=== PATIENT | male | born 1965 | race Two or more races ===

== ENCOUNTER 2023-07-26 23:40 | Inpatient (IN) | payer BC, OTHER ==
[~2023-07-26] VITALS: Ht 160 cm; Wt 105.0 kg
[2023-07-27] VITALS: PULSE 88; RESP 20; O2SAT 98
[2023-07-27] MEDS ORDERED: SODIUM CHLORIDE 0.9% 1,000 ML IV ONE (00:30)
[2023-07-27 00:32] LABS: Basophils # (auto) 0 10 ^3/uL (0-0.2); Basophils % (auto) 0.1 % (0.0-2.0); Eosinophils # (auto) 0 10 ^3/uL (0-0.8); Eosinophils % (auto) 0.1 % (0.0-7.0); Mean Corpuscular Hemoglobin 32.1 pg (28.0-32.0); Monocytes # (auto) 1.7 10 ^3/uL (0-1.3); Monocytes % (auto) 14.4 % (0.0-12.0); White Blood Cell 11.7 10^3/uL (4.4-10.8)
[2023-07-27 00:34] LABS: Hematocrit 38.2 % (41.0-53.0); Hemoglobin 14.1 g/dL (13.5-17.5); Lymphocytes # (auto) 0.9 10 ^3/uL (0.4-5.4); Lymphocytes % (auto) 7.7 % (10.0-50.0); Mean Corpuscular Volume 86.8 fL (80.0-100.0); Neutrophils # (auto) 9.1 10 ^3/uL (1.6-8.6); Neutrophils % (auto) 77.7 % (37.0-80.0); Nucleated Red Blood Cells % 0.1 %
[2023-07-27 00:42] LABS: INR 1.13 (0.9-1.15); Partial Thromboplastin Time 27.1 SEC (24.5-34.5); Prothrombin Time 11.8 sec (9.3-11.8)
[2023-07-27 00:44] LABS: Alanine Aminotransferase 261 U/L (7-40); Albumin 3.8 g/dL (3.2-4.8); Alkaline Phosphatase 84 U/L (46-116); Anion Gap 8 (5-15); Aspartate Aminotransferase 690 U/L (13-40); BUN/Creatinine Ratio 28.8 (10.0-20.0); Bilirubin, Total 2.5 mg/dL (0.2-1.0); Blood Urea Nitrogen 23 mg/dL (9-23); Calcium 7.8 mg/dL (8.7-10.4); Carbon Dioxide 27 mmol/L (20-30); Chloride 86 mmol/L (98-107); Glucose 122 mg/dL (74-106); Lipase 118 U/L (12-53); Magnesium 1.6 mg/dL (1.6-2.6); Sodium 121 mmol/L (136-145); Total Protein 6.5 g/dL (5.7-8.2)
[2023-07-27 00:51] LABS: Potassium 2.2 mmol/L (3.5-5.1)
[2023-07-27] MEDS ORDERED: POTASSIUM CHL 20 Meq TABLET PO ONE ×2 (01:00→06:45)
[2023-07-27 01:04] LABS: Blood Alcohol < 3.0 mg/dL (<10); Lipase 120 U/L (12-53)
[2023-07-27] MEDS ORDERED: SODIUM CHLORIDE 0.9% 1,000 ML IV SCH (05:30)
[2023-07-27] MEDS ORDERED: ONDANSETRON HCL 4 MG/2 ML VIAL IV PRN (05:30)
[2023-07-27] MEDS ORDERED: DOCUSATE SOD 100 MG CAP PO PRN (05:30)
[2023-07-27] MEDS ORDERED: IBUPROFEN 600 MG TAB PO PRN (05:30)
[2023-07-27 05:50] LABS: Basophils # (auto) 0 10 ^3/uL (0-0.2); Eosinophils # (auto) 0 10 ^3/uL (0-0.8); Eosinophils % (auto) 0.1 % (0.0-7.0); Hemoglobin 13.8 g/dL (13.5-17.5)
[2023-07-27 05:52] LABS: Basophils % (auto) 0.1 % (0.0-2.0); Hematocrit 37.9 % (41.0-53.0); Lymphocytes % (auto) 8.2 % (10.0-50.0); Mean Corpuscular Volume 87.5 fL (80.0-100.0); Monocytes # (auto) 1.7 10 ^3/uL (0-1.3); Monocytes % (auto) 14.2 % (0.0-12.0); Neutrophils # (auto) 9.3 10 ^3/uL (1.6-8.6); Neutrophils % (auto) 77.4 % (37.0-80.0); Red Blood Cells 4.33 10^6/uL (4.5-5.90); Red Cell Distribution Width 13.1 % (11.8-14.3)
[2023-07-27 05:55] LABS: Mean Corpuscular Hgb Conc. 36.6 g/dL (32.0-36.0)
[2023-07-27 05:59] LABS: Alanine Aminotransferase 251 U/L (7-40); Albumin 3.8 g/dL (3.2-4.8); Alkaline Phosphatase 84 U/L (46-116); Anion Gap 8 (5-15); Aspartate Aminotransferase 611 U/L (13-40); BUN/Creatinine Ratio 28.8 (10.0-20.0); Blood Urea Nitrogen 21 mg/dL (9-23); Calcium 8.1 mg/dL (8.7-10.4); Carbon Dioxide 27 mmol/L (20-30); Chloride 85 mmol/L (98-107); Glucose 126 mg/dL (74-106); Sodium 120 mmol/L (136-145)
[2023-07-27 06:00] LABS: Bilirubin, Total 2.5 mg/dL (0.2-1.0); Total Protein 6.4 g/dL (5.7-8.2)
[2023-07-27 06:11] LABS: Potassium 2.7 mmol/L (3.5-5.1)
[2023-07-27] MEDS ORDERED: NITROGLYCERIN 0.4 MG SL TAB SL PRN (06:45)
[2023-07-27] MEDS ORDERED: MORPHINE SULFATE INJ 2 MG/ml SYRG IV PRN (06:45)
[2023-07-27] MEDS: POTASSIUM CHL 20MEQ/100ML 100 ML IV SCH ×2 (07:20→09:02)
[2023-07-27 07:52] VITALS: PULSE 91; RESP 25; O2SAT 95
[2023-07-27 08:38] LABS: Urine Bacteria NONE SEEN /hpf (None Seen); Urine Blood 2+ /uL (Negative); Urine Clarity Clear (Clear); Urine Color Yellow (Yellow); Urine Hyaline Cast FEW /lpf (0 - 2); Urine Protein, UAD 1+ (Negative); Urine Specific Gravity 1.019 (1.001-1.035); Urine Urobilinogen Normal (Negative); Urine WBC 3 /hpf (0 - 3)
[2023-07-27 08:56] LABS: Amphetamine Screen, Urine Neg (NEGATIVE); Barbiturate Scree,Urine Neg (NEGATIVE); Benzodiazephine Screen, Urine Neg (NEGATIVE); Cannabinoid Screen, Urine Neg (NEGATIVE); Cocaine Screen, Urine Neg (NEGATIVE); Opiate Scree,Urine Neg (NEGATIVE); Phencyclidine Screen, Urine Neg (NEGATIVE)
[2023-07-27] MEDS: cefTRIAXone 1GM/50ML D5W 50 ML IV SCH (09:36)
[2023-07-27 13:57] LABS: Protein, Urine 62.3 mg/dL (0.0-11.9)
[2023-07-27 14:00] LABS: Creatinine, Urine 132.46 mg/dL (30.0-125.0)
[2023-07-27 16:54] LABS: Chloride 92 mmol/L (98-107); Potassium 3.4 mmol/L (3.5-5.1)
[2023-07-27 16:55] LABS: Anion Gap 6 (5-15); Calcium 8.4 mg/dL (8.7-10.4); Carbon Dioxide 27 mmol/L (20-30)
[2023-07-27 16:56] LABS: Sodium 125 mmol/L (136-145)
[2023-07-27 17:00] LABS: BUN/Creatinine Ratio 19.1 (10.0-20.0); Blood Urea Nitrogen 13 mg/dL (9-23); Glucose 141 mg/dL (74-106)
[2023-07-27 17:20] LABS: Creatine Kinase IFCC 11800 U/L (46-171)
[2023-07-27] MEDS: SODIUM BICARB 50ML SYR 50 ML in SODIUM CHLORIDE 0.9% 1,000 ML IV SCH (18:05)
[2023-07-27 19:23] VITALS: TEMP 37.1
[2023-07-27 20:00] VITALS: PULSE 74; RESP 18; O2SAT 98
[2023-07-27] MEDS: FAMOTIDINE (10MG/ML) 2ML VL IV SCH (21:47)
[2023-07-27 22:00] VITALS: BP 106/62; PULSE 74; RESP 18; TEMP 98.2; O2SAT 98
[2023-07-28] VITALS (8 sets, daily range): BP systolic 102–130; BP diastolic 47–68; PULSE 66–82; RESP 15–20; TEMP 97.8–98.4; O2SAT 94–98
[2023-07-28 05:57] LABS: Basophils # (auto) 0 10 ^3/uL (0-0.2); Basophils % (auto) 0.1 % (0.0-2.0); Eosinophils # (auto) 0 10 ^3/uL (0-0.8); Eosinophils % (auto) 0.4 % (0.0-7.0); Hematocrit 36.9 % (41.0-53.0); Hemoglobin 13.3 g/dL (13.5-17.5); Lymphocytes # (auto) 1.4 10 ^3/uL (0.4-5.4); Mean Corpuscular Hemoglobin 32.3 pg (28.0-32.0); Mean Corpuscular Volume 89.8 fL (80.0-100.0); Monocytes # (auto) 1.6 10 ^3/uL (0-1.3); Monocytes % (auto) 17.9 % (0.0-12.0); Neutrophils # (auto) 5.7 10 ^3/uL (1.6-8.6); Neutrophils % (auto) 65.6 % (37.0-80.0); Nucleated Red Blood Cells % 0.1 %; Red Blood Cells 4.11 10^6/uL (4.5-5.90); Red Cell Distribution Width 13.4 % (11.8-14.3); White Blood Cell 8.7 10^3/uL (4.4-10.8)
[2023-07-28 06:10] LABS: Alanine Aminotransferase 211 U/L (7-40); Albumin 3.7 g/dL (3.2-4.8); Alkaline Phosphatase 82 U/L (46-116); Anion Gap 5 (5-15); Aspartate Aminotransferase 386 U/L (13-40); Bilirubin, Total 1.5 mg/dL (0.2-1.0); Blood Urea Nitrogen 13 mg/dL (9-23); Calcium 8.4 mg/dL (8.7-10.4); Carbon Dioxide 30 mmol/L (20-30); Chloride 96 mmol/L (98-107); Glucose 121 mg/dL (74-106); Lipase 321 U/L (12-53); Phosphorus 2.4 mg/dL (2.4-5.1); Total Protein 6.3 g/dL (5.7-8.2)
[2023-07-28 06:22] LABS: Sodium 131 mmol/L (136-145)
[2023-07-28 06:23] LABS: Creatine Kinase IFCC 8039 U/L (46-171)
[2023-07-28 06:34] LABS: Potassium 2.9 mmol/L (3.5-5.1)
[2023-07-28] MEDS ORDERED: POTASSIUM CHL 20 Meq TABLET PO ONE (06:45)
[2023-07-28] MEDS: POTASSIUM CHL 20MEQ/100ML 100 ML IV SCH ×2 (08:45→09:23)
[2023-07-28] MEDS: FAMOTIDINE (10MG/ML) 2ML VL IV SCH ×2 (09:23→22:16)
[2023-07-28] MEDS: cefTRIAXone 1GM/50ML D5W 50 ML IV SCH (09:23)
[2023-07-28] MEDS: SODIUM BICARB 50ML SYR 50 ML in SODIUM CHLORIDE 0.9% 1,000 ML IV SCH (09:30)
[2023-07-28 15:56] LABS: Triglycerides 139 mg/dL (< 150)
[2023-07-28 15:57] LABS: LDL Cholesterol 70 mg/dL (< 100)
[2023-07-28 15:58] LABS: Cholesterol 128 mg/dL (< 200); HDL Cholesterol 43 mg/dL (40-59)
[2023-07-29] VITALS (8 sets, daily range): BP systolic 115–134; BP diastolic 60–79; PULSE 69–82; RESP 14–20; TEMP 98.1–98.7; O2SAT 97–98
[2023-07-29] MEDS: SODIUM BICARB 50ML SYR 50 ML in SODIUM CHLORIDE 0.9% 1,000 ML IV SCH ×2 (01:41→21:14)
[2023-07-29 06:34] LABS: Hematocrit 36.3 % (41.0-53.0); Hemoglobin 12.7 g/dL (13.5-17.5); Mean Corpuscular Hemoglobin 32.2 pg (28.0-32.0); Red Blood Cells 3.95 10^6/uL (4.5-5.90); Red Cell Distribution Width 14.4 % (11.8-14.3); White Blood Cell 7.6 10^3/uL (4.4-10.8)
[2023-07-29 06:38] LABS: Basophils % (manual) 0 (0.0-2.0); Blast Cells 0; Metamyelocytes % 0; Promyelocytes % 0; Reactive Lymphocytes 0
[2023-07-29 06:47] LABS: Calcium 8.5 mg/dL (8.7-10.4); Chloride 100 mmol/L (98-107); Potassium 3.7 mmol/L (3.5-5.1); Sodium 137 mmol/L (136-145)
[2023-07-29 06:53] LABS: Blood Urea Nitrogen 14 mg/dL (9-23); Glucose 110 mg/dL (74-106)
[2023-07-29 06:56] LABS: Phosphorus 2.5 mg/dL (2.4-5.1)
[2023-07-29 07:05] LABS: Creatine Kinase IFCC 3593 U/L (46-171)
[2023-07-29 07:13] LABS: Anion Gap 4 (5-15); Carbon Dioxide 33 mmol/L (20-30)
[2023-07-29 07:40] LABS: Band Neutrophils % (manual) 3; Eosinophils % (manual) 1 (0-7); Lymphocytes % (manual) 32 (10.0-50.0); Monocytes % (manual) 2 (0-12); Myelocytes % 1; Platelet Estimate Adequate
[2023-07-29 09:13] LABS: Hepatitis B Core Total AB Negative (Negative)
[2023-07-29] MEDS: FAMOTIDINE (10MG/ML) 2ML VL IV SCH ×2 (09:18→21:14)
[2023-07-29] MEDS: cefTRIAXone 1GM/50ML D5W 50 ML IV SCH (09:18)
[2023-07-29 12:40] LABS: Hepatitis A Total Antibody Negative (Negative); Hepatitis B Surface Antibody Negative (Negative); Hepatitis B Surface Antigen Negative (Negative); Hepatitis C Antibody Negative (Negative)
[2023-07-29 13:10] LABS: Sodium Urine < 10 mmol/L (40-220)
[2023-07-29] MEDS ORDERED: SERT-206 PO (14:26)
[2023-07-30] VITALS (7 sets, daily range): BP systolic 97–157; BP diastolic 70–92; PULSE 40–79; RESP 18–20; TEMP 97.6–98.6; O2SAT 96–100
[2023-07-30 07:25] LABS: Alanine Aminotransferase 165 U/L (7-40); Albumin 3.8 g/dL (3.2-4.8); Alkaline Phosphatase 79 U/L (46-116); Anion Gap 3 (5-15); Aspartate Aminotransferase 155 U/L (13-40); BUN/Creatinine Ratio 18.2 (10.0-20.0); Bilirubin, Total 0.7 mg/dL (0.2-1.0); Blood Urea Nitrogen 12 mg/dL (9-23); Calcium 8.8 mg/dL (8.7-10.4); Carbon Dioxide 34 mmol/L (20-30); Chloride 101 mmol/L (98-107); Glucose 101 mg/dL (74-106); Lipase 474 U/L (12-53); Potassium 4.1 mmol/L (3.5-5.1); Sodium 138 mmol/L (136-145); Total Protein 6.3 g/dL (5.7-8.2)
[2023-07-30 07:36] LABS: Creatine Kinase IFCC 1838 U/L (46-171)
[2023-07-30] MEDS: cefTRIAXone 1GM/50ML D5W 50 ML IV SCH (08:29)
[2023-07-30] MEDS: FAMOTIDINE (10MG/ML) 2ML VL IV SCH ×2 (08:29→21:44)
[2023-07-30] MEDS: SODIUM BICARB 50ML SYR 50 ML in SODIUM CHLORIDE 0.9% 1,000 ML IV SCH (14:15)
[2023-07-31 05:00] VITALS: BP 132/69; PULSE 70; RESP 18; TEMP 98.3; O2SAT 97
[2023-07-31 07:48] LABS: Hematocrit 39.2 % (41.0-53.0); Hemoglobin 13.3 g/dL (13.5-17.5); Mean Corpuscular Hemoglobin 31.9 pg (28.0-32.0); Mean Corpuscular Hgb Conc. 33.9 g/dL (32.0-36.0); Mean Corpuscular Volume 94.3 fL (80.0-100.0); Red Blood Cells 4.16 10^6/uL (4.5-5.90); Red Cell Distribution Width 14.6 % (11.8-14.3)
[2023-07-31 08:00] VITALS: BP 143/82; PULSE 76; PULSE 78; RESP 18; RESP 19; TEMP 97.8; O2SAT 95
[2023-07-31 08:04] LABS: Alanine Aminotransferase 143 U/L (7-40); Albumin 3.7 g/dL (3.2-4.8); Alkaline Phosphatase 70 U/L (46-116); Aspartate Aminotransferase 115 U/L (13-40); BUN/Creatinine Ratio 11.7 (10.0-20.0); Bilirubin, Total 0.9 mg/dL (0.2-1.0); Blood Urea Nitrogen 7 mg/dL (9-23); Calcium 8.7 mg/dL (8.7-10.4); Carbon Dioxide 29 mmol/L (20-30); Creatine Kinase IFCC 1160 U/L (46-171); Glucose 102 mg/dL (74-106); Lipase 255 U/L (12-53); Total Protein 6.3 g/dL (5.7-8.2)
[2023-07-31] MEDS: SODIUM BICARB 50ML SYR 50 ML in SODIUM CHLORIDE 0.9% 1,000 ML IV SCH ×2 (08:06→21:17)
[2023-07-31 08:12] LABS: Band Neutrophils % (manual) 0; Basophils % (manual) 0 (0.0-2.0); Blast Cells 0; Metamyelocytes % 0; Promyelocytes % 0; Reactive Lymphocytes 0
[2023-07-31 08:37] LABS: Anion Gap 3 (5-15); Chloride 104 mmol/L (98-107); Potassium 3.9 mmol/L (3.5-5.1); Sodium 136 mmol/L (136-145)
[2023-07-31 08:57] LABS: Eosinophils % (manual) 1 (0-7); Lymphocytes % (manual) 25 (10.0-50.0); Monocytes % (manual) 20 (0-12); Myelocytes % 1; Platelet Estimate Adequate
[2023-07-31] MEDS ORDERED: IOHEXOL 350 MG/ML 100ML IJ ONE (09:17)
[2023-07-31] MEDS: FAMOTIDINE (10MG/ML) 2ML VL IV SCH ×2 (10:34→21:16)
[2023-07-31] MEDS: cefTRIAXone 1GM/50ML D5W 50 ML IV SCH (10:34)
[2023-07-31] MEDS: ENOXAPARIN SOD 100 MG/1 ML SYRINGE SC SCH ×2 (12:08→21:17)
[2023-07-31] MEDS ORDERED: MAGNESIUM SULFATE 1GM/100ML 100 ML IV ONE (12:15)
[2023-07-31] MEDS ORDERED: LISINOPRIL 20 MG TAB PO ONE (12:15)
[2023-07-31 13:00] VITALS: BP 145/60; PULSE 83; RESP 20; TEMP 98.3; O2SAT 99
[2023-07-31] MEDS: HYDROcodone-ACET 5/325MG TAB PO PRN (14:47)
[2023-07-31 17:00] VITALS: BP 103/59; PULSE 72; RESP 18; TEMP 97.5; O2SAT 94
[2023-07-31 20:00] VITALS: PULSE 71; PULSE 92; RESP 18; O2SAT 96
[2023-07-31 22:00] VITALS: BP 132/93; PULSE 83; RESP 20; TEMP 98.9; O2SAT 96
[2023-08-01 05:00] VITALS: BP 105/55; PULSE 81; RESP 18; TEMP 98.2; O2SAT 98
[2023-08-01 06:10] LABS: Hematocrit 37.9 % (41.0-53.0); Hemoglobin 13.3 g/dL (13.5-17.5); Mean Corpuscular Hemoglobin 32.7 pg (28.0-32.0); Mean Corpuscular Hgb Conc. 35.1 g/dL (32.0-36.0); Mean Corpuscular Volume 93.3 fL (80.0-100.0); Red Blood Cells 4.07 10^6/uL (4.5-5.90); Red Cell Distribution Width 14.3 % (11.8-14.3); White Blood Cell 6.9 10^3/uL (4.4-10.8)
[2023-08-01 06:14] LABS: Basophils % (manual) 0 (0.0-2.0); Blast Cells 0; Metamyelocytes % 0; Myelocytes % 0; Promyelocytes % 0; Reactive Lymphocytes 0
[2023-08-01 06:24] LABS: Alanine Aminotransferase 122 U/L (7-40); Albumin 3.7 g/dL (3.2-4.8); Alkaline Phosphatase 66 U/L (46-116); Anion Gap 6 (5-15); Aspartate Aminotransferase 68 U/L (13-40); BUN/Creatinine Ratio 18.5 (10.0-20.0); Bilirubin, Total 1.3 mg/dL (0.2-1.0); Blood Urea Nitrogen 10 mg/dL (9-23); Calcium 8.9 mg/dL (8.5-10.1); Carbon Dioxide 29 mmol/L (20-30); Chloride 103 mmol/L (98-107); Glucose 103 mg/dL (74-106); Potassium 4.1 mmol/L (3.5-5.1); Sodium 138 mmol/L (136-145)
[2023-08-01 06:37] LABS: Magnesium 2.1 mg/dL (1.6-2.6)
[2023-08-01 07:27] LABS: Band Neutrophils % (manual) 4; Eosinophils % (manual) 1 (0-7); Lymphocytes % (manual) 23 (10.0-50.0); Monocytes % (manual) 17 (0-12); Platelet Estimate Adequate
[2023-08-01] MEDS: HYDROcodone-ACET 5/325MG TAB PO PRN ×2 (07:37→21:42)
[2023-08-01 08:00] VITALS: BP 117/81; PULSE 72; RESP 21; TEMP 97.9; O2SAT 98
[2023-08-01] MEDS: ENOXAPARIN SOD 100 MG/1 ML SYRINGE SC SCH ×2 (10:25→21:42)
[2023-08-01] MEDS: FAMOTIDINE (10MG/ML) 2ML VL IV SCH ×2 (10:25→21:43)
[2023-08-01] MEDS: LISINOPRIL 20 MG TAB PO SCH (10:25)
[2023-08-01 12:00] VITALS: BP 137/90; PULSE 79; RESP 20; TEMP 98.2; O2SAT 95
[2023-08-01 16:00] VITALS: BP 132/100; PULSE 83; RESP 20; TEMP 99.2; O2SAT 99
[2023-08-01] MEDS: SODIUM BICARB 50ML SYR 50 ML in SODIUM CHLORIDE 0.9% 1,000 ML IV SCH (18:30)
[2023-08-01 20:00] VITALS: PULSE 111
[2023-08-01 22:00] VITALS: BP 102/58; PULSE 82; RESP 17; TEMP 99.3; O2SAT 97
[2023-08-02] VITALS (7 sets, daily range): BP systolic 108–132; BP diastolic 69–88; PULSE 61–100; RESP 14–20; TEMP 97.8–98.3; O2SAT 98–100
[2023-08-02 06:49] LABS: Hematocrit 37.2 % (41.0-53.0); Hemoglobin 12.7 g/dL (13.5-17.5); Mean Corpuscular Hemoglobin 32.6 pg (28.0-32.0); Mean Corpuscular Hgb Conc. 34.2 g/dL (32.0-36.0); Mean Corpuscular Volume 95.3 fL (80.0-100.0); Red Cell Distribution Width 14.8 % (11.8-14.3); White Blood Cell 6.4 10^3/uL (4.4-10.8)
[2023-08-02 07:03] LABS: Basophils % (manual) 0 (0.0-2.0); Blast Cells 0; Metamyelocytes % 0; Myelocytes % 0; Promyelocytes % 0; Reactive Lymphocytes 0
[2023-08-02 07:07] LABS: Alanine Aminotransferase 96 U/L (7-40); Albumin 3.8 g/dL (3.2-4.8); Alkaline Phosphatase 71 U/L (46-116); Anion Gap 6 (5-15); Aspartate Aminotransferase 49 U/L (13-40); BUN/Creatinine Ratio 11.1 (10.0-20.0); Blood Urea Nitrogen 7 mg/dL (9-23); Calcium 8.9 mg/dL (8.7-10.4); Carbon Dioxide 29 mmol/L (20-30); Chloride 104 mmol/L (98-107); Creatine Kinase IFCC 509 U/L (46-171); Glucose 88 mg/dL (74-106); Lipase 132 U/L (12-53); Potassium 4.4 mmol/L (3.5-5.1); Sodium 139 mmol/L (136-145)
[2023-08-02 07:08] LABS: Bilirubin, Total 1.2 mg/dL (0.2-1.0); Total Protein 6.3 g/dL (5.7-8.2)
[2023-08-02 09:33] LABS: Band Neutrophils % (manual) 1; Eosinophils % (manual) 1 (0-7); Lymphocytes % (manual) 29 (10.0-50.0); Monocytes % (manual) 16 (0-12)
[2023-08-02 09:34] LABS: Platelet Estimate Adequate
[2023-08-02] MEDS: LISINOPRIL 20 MG TAB PO SCH (10:00)
[2023-08-02] MEDS: FAMOTIDINE (10MG/ML) 2ML VL IV SCH ×2 (10:18→22:28)
[2023-08-02] MEDS: ENOXAPARIN SOD 100 MG/1 ML SYRINGE SC SCH ×2 (10:19→22:28)
[2023-08-02] MEDS: SODIUM BICARB 50ML SYR 50 ML in SODIUM CHLORIDE 0.9% 1,000 ML IV SCH (10:57)
[2023-08-02] MEDS: HYDROcodone-ACET 5/325MG TAB PO PRN ×2 (11:01→22:28)
[2023-08-03] MEDS: SODIUM BICARB 50ML SYR 50 ML in SODIUM CHLORIDE 0.9% 1,000 ML IV SCH (03:00)
[2023-08-03 05:00] VITALS: BP 113/68; PULSE 70; RESP 17; TEMP 98.1; O2SAT 97
[2023-08-03 08:00] VITALS: PULSE 65
[2023-08-03 09:11] VITALS: BP 103/70; PULSE 83; RESP 18; TEMP 98.2; O2SAT 95
[2023-08-03] MEDS ORDERED: APIXABAN 5 MG TAB PO SCH (10:00)
[2023-08-03] MEDS: LISINOPRIL 20 MG TAB PO SCH (10:00)
[2023-08-03] MEDS ORDERED: HYDR-4902 PO (10:05)
[2023-08-03] MEDS: FAMOTIDINE (10MG/ML) 2ML VL IV SCH (10:05)
[2023-08-03] MEDS ORDERED: APIX5TAB PO ×3 (10:05→13:36)
[2023-08-03 11:00] VITALS: BP 103/70; PULSE 83; RESP 18; TEMP 98.2; O2SAT 95
[2023-08-03] MEDS: HYDROcodone-ACET 5/325MG TAB PO PRN (11:23)
[2023-08-03 13:00] VITALS: BP 136/92; PULSE 79; RESP 18
[2023-08-03 16:47] VITALS: BP 110/68; PULSE 69; RESP 18; TEMP 97.6; O2SAT 100
== END 2023-08-03 15:39 | disposition home or self-care (01) | DRG 438 ==
LOC: ER 23:40 → EDBD 23:40 → TELE 07-27 06:34 → TELE-EAST 07-27 17:50
PROVIDERS: ADMIT Nurse Practitioner Family; ATTEND Family Medicine
DX: K85.90 Acute pancreatitis without necrosis or infection, unspecified (principal); I21.4 Non-ST elevation (NSTEMI) myocardial infarction; N17.0 Acute kidney failure with tubular necrosis; I26.99 Other pulmonary embolism without acute cor pulmonale; M62.82 Rhabdomyolysis; E87.1 Hypo-osmolality and hyponatremia; Z68.41 Body mass index [BMI] 40.0-44.9, adult; I50.32 Chronic diastolic (congestive) heart failure; K80.20 Calculus of gallbladder without cholecystitis without obstruction; E66.9 Obesity, unspecified; E86.0 Dehydration; E86.1 Hypovolemia; E87.6 Hypokalemia; K76.0 Fatty (change of) liver, not elsewhere classified; R29.6 Repeated falls; R19.7 Diarrhea, unspecified; D72.829 Elevated white blood cell count, unspecified; Z82.49 Family history of ischemic heart disease and other diseases of the circulatory system; Z83.3 Family history of diabetes mellitus; Z98.84 Bariatric surgery status
CPT/HCPCS: 36415; 70450; 70551; 71045; 71275; 72125; 73080; 73562; 74176; 76705; 78226; 80048; 80053; 80061; 80307; 80320; 81001; 82550; 82570; 82962; 83036; 83690; 83735; 83880; 84100; 84156; 84300; 84443; 84484; 84550; 85007; 85025; 85027; 85379; 85610; 85730; 86301; 86704; 86706; 86708; 86803; 87340; 92610; 93005; 93306; 93970; G0378; J0696; J2405; J3480; J3490

== ENCOUNTER → 2023-08-29 | Outpatient (CLI) | payer BC ==
[~2023-08-29] MED LIST: APIX5TAB PO; SERT-206 PO
== END | disposition home or self-care (01) ==
LOC: XYW 15:32
PROVIDERS: ATTEND Student in an Organized Health Care Education/Training Program
DX: I51.89 Other ill-defined heart diseases (principal); I26.99 Other pulmonary embolism without acute cor pulmonale
CPT/HCPCS: 93306

== ENCOUNTER 2024-06-17 16:04 | Emergency (ER) | payer BC, MEDICAID ==
[~2024-06-17] VITALS: Ht 160 cm; Wt 109.0 kg
[2024-06-17 18:01] LABS: Urine Bacteria None Seen /hpf (None Seen)
[2024-06-17 18:28] LABS: Urine Blood Negative /uL (Negative); Urine Clarity Clear (Clear); Urine Color Yellow (Yellow); Urine Mucus FEW (None Seen); Urine Protein, UAD Negative (Negative); Urine Specific Gravity 1.025 (1.001-1.035); Urine Urobilinogen Normal (Negative); Urine WBC 1 /hpf (0 - 3); Urine pH 5.5 (5.0-9.0)
[2024-06-17 18:33] LABS: Basophils # (auto) 0 10 ^3/uL (0-0.2); Basophils % (auto) 0.6 % (0.0-2.0); Eosinophils # (auto) 0.1 10 ^3/uL (0-0.8); Eosinophils % (auto) 0.8 % (0.0-7.0); Hematocrit 46.3 % (41.0-53.0); Hemoglobin 15.5 g/dL (13.5-17.5); Lymphocytes # (auto) 2.2 10 ^3/uL (0.4-5.4); Lymphocytes % (auto) 28.8 % (10.0-50.0); Mean Corpuscular Hemoglobin 31.1 pg (28.0-32.0); Mean Corpuscular Hgb Conc. 33.4 g/dL (32.0-36.0); Mean Corpuscular Volume 93.3 fL (80.0-100.0); Monocytes # (auto) 0.6 10 ^3/uL (0-1.3); Monocytes % (auto) 7.5 % (0.0-12.0); Neutrophils # (auto) 4.7 10 ^3/uL (1.6-8.6); Neutrophils % (auto) 62.3 % (37.0-80.0); Nucleated Red Blood Cells % 0.2 %; Platelet Count (auto) 218 10^3/uL (140-450); Red Blood Cells 4.97 10^6/uL (4.5-5.90); Red Cell Distribution Width 14.7 % (11.8-14.3); White Blood Cell 7.5 10^3/uL (4.4-10.8)
[2024-06-17] MEDS: SODIUM CHLORIDE 0.9% 1,000 ML IV ONE (18:40)
[2024-06-17 18:51] LABS: Alanine Aminotransferase 21 U/L (7-40); Alkaline Phosphatase 81 U/L (46-116); Anion Gap 6 (5-15); Aspartate Aminotransferase 14 U/L (13-40); BUN/Creatinine Ratio 17.8 (10.0-20.0); Bilirubin, Total 1.6 mg/dL (0.2-1.0); Blood Urea Nitrogen 13 mg/dL (9-23); Calcium 9.8 mg/dL (8.7-10.4); Carbon Dioxide 27 mmol/L (20-30); Chloride 107 mmol/L (98-107); Glucose 87 mg/dL (74-106); Lipase 37 U/L (12-53); Potassium 4.2 mmol/L (3.5-5.1); Sodium 140 mmol/L (136-145); Total Protein 7.5 g/dL (5.7-8.2)
[2024-06-17 18:56] VITALS: BP 117/73; PULSE 70; RESP 16; TEMP 97.8; O2SAT 96
[2024-06-17 19:20] LABS: Albumin 4.6 g/dL (3.2-4.8)
[2024-06-17 19:22] LABS: Lactic Acid w/Reflex 2.2 mmol/L (0.4-2.0)
[2024-06-17] MEDS ORDERED: CEPH500T PO (21:31)
== END 2024-06-17 21:39 | disposition home or self-care (01) ==
LOC: ER 16:04
DX: M54.50 Low back pain, unspecified (principal); Z98.890 Other specified postprocedural states; Z79.899 Other long term (current) drug therapy
CPT/HCPCS: 36415; 74176; 80053; 81001; 83605; 83690; 84484; 85025; 87086; 96360; 99284; J7030

== ENCOUNTER 2024-10-16 11:57 | Day surgery (SDC) | payer MEDICAID ==
[2024-10-12 13:25] LABS: Urine Bacteria None Seen /hpf (None Seen)
[2024-10-12 13:27] LABS: Basophils # (auto) 0 10 ^3/uL (0-0.2); Basophils % (auto) 0.5 % (0.0-2.0); Eosinophils # (auto) 0.1 10 ^3/uL (0-0.8); Eosinophils % (auto) 0.6 % (0.0-7.0); Hematocrit 49.1 % (41.0-53.0); Hemoglobin 16.6 g/dL (13.5-17.5); Lymphocytes # (auto) 1.8 10 ^3/uL (0.4-5.4); Lymphocytes % (auto) 19.4 % (10.0-50.0); Mean Corpuscular Hgb Conc. 33.8 g/dL (32.0-36.0); Mean Corpuscular Volume 94.6 fL (80.0-100.0); Monocytes # (auto) 0.8 10 ^3/uL (0-1.3); Monocytes % (auto) 8.3 % (0.0-12.0); Neutrophils # (auto) 6.5 10 ^3/uL (1.6-8.6); Neutrophils % (auto) 71.2 % (37.0-80.0); Nucleated Red Blood Cells % 0.1 %; Platelet Count (auto) 279 10^3/uL (140-450); Red Cell Distribution Width 13.3 % (11.8-14.3); White Blood Cell 9.1 10^3/uL (4.4-10.8)
[2024-10-12 13:39] LABS: Urine Blood Negative /uL (Negative); Urine Clarity Clear (Clear); Urine Color Light-Yellow (Yellow); Urine Mucus FEW (None Seen); Urine Protein, UAD Negative (Negative); Urine Specific Gravity 1.024 (1.001-1.035); Urine Urobilinogen Normal (Negative); Urine WBC 6 /hpf (0 - 3)
[2024-10-12 13:48] LABS: INR 0.97 (0.9-1.15); Prothrombin Time 10.3 sec (9.3-11.8)
[2024-10-12 14:05] LABS: Alanine Aminotransferase 18 U/L (7-40); Albumin 4.8 g/dL (3.2-4.8); Alkaline Phosphatase 92 U/L (46-116); Anion Gap 6 (5-15); Aspartate Aminotransferase 14 U/L (13-40); BUN/Creatinine Ratio 25.3 (10.0-20.0); Blood Urea Nitrogen 21 mg/dL (9-23); Carbon Dioxide 29 mmol/L (20-31); Chloride 106 mmol/L (98-107); Potassium 4.5 mmol/L (3.5-5.1); Sodium 141 mmol/L (136-145); Total Protein 7.7 g/dL (5.7-8.2)
[2024-10-12 14:10] LABS: Bilirubin, Total 1.6 mg/dL (0.2-1.0); Calcium 10.9 mg/dL (8.7-10.4); Glucose 115 mg/dL (74-106)
[~2024-10-16] VITALS: Ht 160 cm; Wt 108.9 kg
[~2024-10-16 11:57] MED LIST changes: +APPLCAP PO; +ASPITAB37 PO; +CHOL200064 PO; +COEN100C15 PO; +FERR15DR18 PO; +OMEG1CAP68 PO; +TURMPOW XX
[2024-10-16] MEDS ORDERED: SUCCINYLCHOLINE CHLORIDE 20 MG/ML 10ML VIAL IV ONE (11:58)
[2024-10-16 12:26] VITALS: BP 117/72; TEMP 99
[2024-10-16] MEDS ORDERED: ceFAZolin 2 GM/D5W100ml 100 ML IV ONE (13:50)
[2024-10-16] MEDS ORDERED: MEPERIDINE HCL (25 MG/ML) 1ML VIAL ONE (13:53)
[2024-10-16] MEDS ORDERED: fentaNYL CITRATE 100 MCG/2 ML VL ONE (13:53)
[2024-10-16] MEDS ORDERED: MIDAZOLAM HCL 2MG/2ML 2ml VIAL (1mg/ml) ONE (13:54)
[2024-10-16] MEDS ORDERED: hydrALAZINE HCL 20 MG/ML VL IV PRN (14:15)
[2024-10-16] MEDS ORDERED: HYDROmorphone HCL 2 MG/ML VL/or syr IV PRN (14:15)
[2024-10-16] MEDS ORDERED: ePHEDrine SULFATE 50 MG/ML AMP IV PRN (14:15)
[2024-10-16] MEDS ORDERED: MORPHINE SULFATE 4 MG/ML SYR/VIAL IV PRN (14:15)
[2024-10-16] MEDS ORDERED: MIDAZOLAM HCL 2MG/2ML 2ml VIAL (1mg/ml) IV PRN (14:15)
[2024-10-16] MEDS ORDERED: ONDANSETRON HCL 4 MG/2 ML VIAL IV ONE (14:15)
[2024-10-16] MEDS ORDERED: KETOROLAC TROMETH 30 MG/ML 1ML VIAL IV ONE (14:15)
[2024-10-16] MEDS ORDERED: ONDANSETRON HCL 4 MG/2 ML VIAL ONE (14:21)
[2024-10-16] MEDS ORDERED: DexAMETHasone SOD PHOS 10MG/1ML VIAL INJ ONE (14:21)
[2024-10-16] MEDS ORDERED: ETOMIDATE (2MG/ML) 20ML VIAL IV ONE (14:21)
[2024-10-16] MEDS: IOHEXOL 300 MG/ML 100ML BOTTLE IJ ONE (14:25)
[2024-10-16] MEDS ORDERED: LIDOCAINE W/ EPINEPHRINE 2% INJ 20ML VIAL ONE (14:31)
[2024-10-16] MEDS ORDERED: BACITRACIN TOP OINT 1 UD PKG TOP ONE (14:55)
[2024-10-16 15:06] VITALS: PULSE 97; RESP 14; O2SAT 99
--- NOTE | 2024-10-16 15:06 | DVHDS2 ---
New Physician D'charge PN Admitting Diagnosis Admitting Diagnosis Phimosis Left distal ureteral calculus Discharge Diagnosis Same Operations or Procedures Dorsal slit circumcision Cystoscopy with left retrograde pyelogram Left ureteroscopy Reason(s) For Hospitalization Surgery Treatment Plan Discharge Condition of Discharge Good Disposition Home Discharge Instructions Diet: Regular Activity: Light activity Activity comment: Wound care Medications: Given Follow Up Care Follow Up/Referral: Follow-up in two weeks for wound check Discharge Statement: "Patient was advised to return to the ER or call 911 if any headaches, dizziness, shortness of breath, chest pain, abdominal pain, bleeding, fevers, or worsening of medical condition. Patient was counseled about treatment plan, medications, possible side effects, patientverbalized understanding. All questions were answered to the best of my ability. This discharge took greater then 30 minutes in planning, reviewing documentation, counseling the patient, and discussing with other team members." KATERYNA PETE MD Oct 16, 2024 15:06
--- NOTE | 2024-10-16 15:45 | DVH ---
Date: 10/16/2024 03:23 PM Examination: XY KUB ABDOMEN SINGLE VIEW History: SURGICAL RETROGRADE UROGRAM Comparison: None TECHNIQUE: Retrograde left ureterogram FINDINGS: Total fluoro time 55.7 seconds Cumulative dose: 32.23 mGy IMPRESSION: 1. Left retrograde ureterogram. 2. Total fluoro time 55.7 seconds 3. Cumulative dose: 32.23 mGy
--- NOTE | 2024-10-16 15:45 | DVH ---
C-ARM FLUOROSCOPY: PROCEDURE: Left-sided retrograde ureterogram FLUOROSCOPY TIME: 55.7 seconds Cumulative dose: 32.23 mGy
== END 2024-10-16 16:45 | disposition home or self-care (01) ==
LOC: SUR 11:57
PROVIDERS: ATTEND Urology
DX: N47.1 Phimosis (principal); N20.1 Calculus of ureter; N48.83 Acquired buried penis; E66.01 Morbid (severe) obesity due to excess calories; Z90.49 Acquired absence of other specified parts of digestive tract; Z98.84 Bariatric surgery status; Z86.711 Personal history of pulmonary embolism; Z79.01 Long term (current) use of anticoagulants; Z68.41 Body mass index [BMI] 40.0-44.9, adult
CPT/HCPCS: 36415; 52005; 54161; 74018; 80053; 81001; 85025; 85610; 85730; 87086; J0330; J1100; J2175; J2250; J2405; J3010; Q9967; 76000